=== PATIENT | female | born 1965 | race African-American/Black ===

== ENCOUNTER 2017-08-11 16:20 | Emergency (ER) | payer MEDICAID ==
--- NOTE | 2017-08-11 17:01 | Emergency Department Record ---
History of Present Illness - General Chief Complaint: Abdominal Pain Stated Complaint: ABDOMINAL PAIN Time Seen by Provider: 08/11/17 16:46 Source: Patient Mode of Arrival: Ambulatory Limitations: No limitations - History of Present Illness Initial Comments: 51 yo female with a history of multiple abdominal surgeries presents with 3 days of abdominal pain. No vomiting but she does have some nausea. She is having some loose stools as well. No blood in the stools. No fever. She reports history of appendectomy, numerous [employer], diverticulitis. She has hernies as well. Her current pain does not localize to one area. She points to her entire abdomen as the location. Last bowel movement was about 45 minutes prior to calling the ambulance. She was treated in the last month for renal stones. She reports this pain is different. PCP is Luda Lemus at [facility] Complaint: Abdominal pain Onset/Timin -: Days(s) (3) Location: Diffuse Radiation: Back Severity: Moderate Severity scale (1-10): 10 Quality: Stabbing Consistency: Intermittent Improves With: Rest, Other Worsens With: Movement Associated Symptoms: Anorexia - Related Data Allergies Allergy/AdvReac Type Severity Reaction Status Date / Time latex Allergy Mild itching Verified 08/11/17 16:36 Travel Screening - Travel/Exposure Within Last 30 Days Have you traveled within the last 30 days?: No - Travel/Exposure Within Last Year Have you traveled outside the [place] in the last year?: No - Additonal Travel Details Have you been exposed to anyone with a communicable illness?: No - Travel Symptoms Symptom Screening: None Review of Systems Constitutional: Denies: Chills, Fever, Malaise, Weakness Eyes: Denies: Eye discharge, Eye pain, Photophobia, Vision change ENT: Denies: Congestion, Throat pain Respiratory: Denies: Cough, Dyspnea Cardiovascular: Denies: Chest pain, Palpitations, Syncope Endocrine: Denies: Fatigue Gastrointestinal: Reports: Abdominal pain, Diarrhea, Nausea. Denies: Constipation, Hematemesis, Hematochezia, Melena Genitourinary: Denies: Dysuria, Urgency Musculoskeletal: Denies: Arthralgia, Back pain, Joint swelling, Myalgia Skin: Denies: Bruising, Change in color, Rash Neurological: Denies: Headache, Numbness, Weakness Psychiatric: Denies: Anxiety Hematological/Lymphatic: Denies: Blood Clots, Easy bleeding, Easy bruising Past Medical History - SOCIAL HISTORY Smoking Status: Former smoker Alcohol Use: Rare Drug Use: None - RESPIRATORY Hx Respiratory Disorders: No - CARDIOVASCULAR Hx Cardio Disorders: Yes Hx Hypertension: Yes - NEURO Hx Neuro Disorders: No - GI Hx GI Disorders: Yes Hx Diverticulitis: Yes - Hx Genitourinary Disorders: Yes Hx Kidney Stones: Yes - ENDOCRINE Hx Endocrine Disorders: Yes Hx Diabetes: Yes - MUSCULOSKELETAL Hx Musculoskeletal Disorders: Yes - PSYCH Hx Psych Problems: Yes Hx Anxiety: Yes Hx Depression: Yes Comment:: PTSD - HEMATOLOGY/ONCOLOGY Hx Hematology/Oncology Disorders: No Family Medical History Any Significant Family History?: No Physical Exam - General General Appearance: Alert, Oriented x3, Cooperative, No acute distress Limitations: No limitations - Head Head exam: Normal inspection - Eye Eye exam: Normal appearance. negative: Conjunctival injection, Scleral icterus - ENT ENT exam: Normal exam, Mucous membranes moist Ear exam: Normal external inspection Nasal Exam: Normal inspection Mouth exam: Normal external inspection - Neck Neck exam: Normal inspection, Full ROM. negative: Tenderness - Respiratory Respiratory exam: Normal lung sounds bilaterally. negative: Respiratory distress, Rhonchi, Stridor, Wheezes - Cardiovascular Cardiovascular Exam: Regular rate, Normal rhythm, Normal heart sounds - GI/Abdominal GI/Abdominal exam: Soft, Normal bowel sounds, Guarding (mild), Tenderness, Other (The abdomen is morbidly obese. She is very soft with active bowel sounds but equally tender in all 4 quadrants). negative: Distended, Rebound, Rigid - Rectal Rectal exam: Deferred - exam: Deferred - Extremities Extremities exam: Normal inspection. negative: Pedal edema - Back Back exam: Denies: CVA tenderness (R), CVA tenderness (L) - Neurological Neurological exam: Alert, Oriented X3 - Psychiatric Psychiatric exam: Normal affect, Normal mood - Skin Skin exam: Dry, Intact, Normal color, Warm Course Vital Signs 08/11/17 16:38 Temperature 98.1 F Pulse Rate 94 H Respiratory 20 Rate Blood Pressure 146/91 Pulse Ox 97 - Reevaluation(s) Reevaluation #1: 08/11/17 18:26 I was updated by RN Unable to start line or obtained labs at this time. She was given IM medications and Zofran She is comfortable at this time. 08/11/17 19:00 Multiple RN's and phlebotomy attempted The patient will have CT at this time The case was signed over to Dr Woodward to review the CT and re-evaluate at that time based on the CT results Medical Decision Making - Lab Data Result diagrams: 08/11/17 17:05 08/11/17 17:05 Disposition Disposition: Transfer Clinical Impression: Abdominal pain Qualifiers: Abdominal location: generalized Qualified Code(s): R10.84 - Generalized abdominal pain Disposition: Acute Care Hospital [facility] Reason For Transfer: abdominal pain Accepting Physician: Nino Time Discussed w/Accepting Physician: 21:00 Condition: (2) Stable Forms: Patient Portal Access Time of Disposition: 21:00 Quality - Quality Measures Quality Measures: N/A - Blood Pressure Screening Does Patient Have Any of the Following: Active Dx of HTN Blood Pressure Classification: Pre-Hypertensive BP Reading Systolic Measurement: 148 Diastolic Measurement: 86 Screening for High Blood Pressure: Patient Exclusion, Hx of HTN [G9744] Pre-Hypertensive Follow-up Interventions: Referral to alternative/primary care provider.
[2017-08-11] MEDS ORDERED: ONDANSETRON HCL IV 4 MG/2 ML VIAL IVP ONE (17:06)
[2017-08-11] MEDS ORDERED: 0.9 % SODIUM CHLORIDE 1,000 ML BAG IV ONE (17:06)
[2017-08-11] MEDS ORDERED: MORPHINE SULFATE 10 MG/ML VIAL IVP ONE (17:06)
[2017-08-11] MEDS ORDERED: MORPHINE SULFATE 10 MG/ML VIAL IM ONE (19:03)
--- NOTE | 2017-08-11 21:08 | Emergency Department Record ---
History of Present Illness - General Chief Complaint: Abdominal Pain Stated Complaint: ABDOMINAL PAIN Time Seen by Provider: 08/11/17 16:46 Source: Patient Mode of Arrival: Ambulatory Limitations: No limitations - History of Present Illness MD Complaint: Abdominal pain Onset/Timin -: Days(s) (3) Location: Diffuse Radiation: Back Severity: Moderate Severity scale (1-10): 10 Quality: Stabbing Consistency: Intermittent Improves With: Rest, Other Worsens With: Movement Associated Symptoms: Anorexia - Related Data Patient : No Allergies Allergy/AdvReac Type Severity Reaction Status Date / Time latex Allergy Mild itching Verified 08/11/17 16:36 Travel Screening - Travel/Exposure Within Last 30 Days Have you traveled within the last 30 days?: No - Travel/Exposure Within Last Year Have you traveled outside the [place] in the last year?: No - Additonal Travel Details Have you been exposed to anyone with a communicable illness?: No - Travel Symptoms Symptom Screening: None Review of Systems Constitutional: Denies: Chills, Fever, Malaise, Weakness Eyes: Denies: Eye discharge, Eye pain, Photophobia, Vision change ENT: Denies: Congestion, Throat pain Respiratory: Denies: Cough, Dyspnea Cardiovascular: Denies: Chest pain, Palpitations, Syncope Endocrine: Denies: Fatigue Gastrointestinal: Reports: Abdominal pain, Diarrhea, Nausea. Denies: Constipation, Hematemesis, Hematochezia, Melena Genitourinary: Denies: Dysuria, Urgency Musculoskeletal: Denies: Arthralgia, Back pain, Joint swelling, Myalgia Skin: Denies: Bruising, Change in color, Rash Neurological: Denies: Headache, Numbness, Weakness Psychiatric: Denies: Anxiety Hematological/Lymphatic: Denies: Blood Clots, Easy bleeding, Easy bruising Past Medical History - SOCIAL HISTORY Smoking Status: Former smoker Alcohol Use: Rare Drug Use: None - RESPIRATORY Hx Respiratory Disorders: No - CARDIOVASCULAR Hx Cardio Disorders: Yes Hx Hypertension: Yes - NEURO Hx Neuro Disorders: No - GI Hx GI Disorders: Yes Hx Diverticulitis: Yes - Hx Genitourinary Disorders: Yes Hx Kidney Stones: Yes - ENDOCRINE Hx Endocrine Disorders: Yes Hx Diabetes: Yes - MUSCULOSKELETAL Hx Musculoskeletal Disorders: Yes - PSYCH Hx Psych Problems: Yes Hx Anxiety: Yes Hx Depression: Yes Comment:: PTSD - HEMATOLOGY/ONCOLOGY Hx Hematology/Oncology Disorders: No Family Medical History Any Significant Family History?: No Physical Exam - General Limitations: No limitations Course Vital Signs 08/11/17 08/11/17 08/11/17 16:38 19:57 20:55 Temperature 98.1 F Pulse Rate 94 H Pulse Rate [ 96 H 100 H Pulse Ox Probe] Respiratory 20 20 28 H Rate Blood Pressure 146/91 Blood Pressure 143/77 147/83 [Left Arm] Pulse Ox 97 97 92 L - Reevaluation(s) Reevaluation #1: 08/11/17 21:05 CT Abdomen and Pelvis: Non-obstructing calculi left kidney Abdominal wall hernia with non-obstructing small bowel present Distal small bowel wall thickening. Patient was updated on all results, however nursing staff has been unable to place an IV /obtain laboratory studies even under US imaging. Per patient choice, will initiate transfer to [facility] ED for further evaluation. Medical Decision Making - Lab Data Result diagrams: 08/11/17 17:05 08/11/17 17:05 Disposition Disposition: Transfer Clinical Impression: Abdominal pain Qualifiers: Abdominal location: generalized Qualified Code(s): R10.84 - Generalized abdominal pain Disposition: Acute Care Hospital Transfer Transfer To: [facility] Reason For Transfer: Surgical evaluation, PICC team evaluation Accepting Physician: Nino Time Discussed w/Accepting Physician: 21:08 Condition: (2) Stable Forms: Patient Portal Access Time of Disposition: 21:08 Quality - Quality Measures Quality Measures: N/A - Blood Pressure Screening Does Patient Have Any of the Following: Active Dx of HTN Blood Pressure Classification: Hypertensive Reading Systolic Measurement: 146 Diastolic Measurement: 91 Screening for High Blood Pressure: Patient Exclusion, Hx of HTN [G9744]
--- NOTE | 2017-08-13 20:25 | CT SCAN REPORT ---
EXAM: CT SCAN ABDOMEN/PELVIS WO CONTRAST HISTORY: ABDOMINAL PAIN FOR TWO DAYS. TECHNIQUE: Axial CT scan of the abdomen and pelvis performed with oral contrast but without IV contrast at the referring physician's request. COMPARISON: None. FINDINGS: Surgical clips in the gallbladder fossa consistent with prior cholecystectomy. Single tiny nonobstructing calculus lower pole left kidney. No hydronephrosis or hydroureter on either side. Ureters are difficult to follow in their nondistended state throughout the abdomen and pelvis and this study was not protocoled specifically for urinary tract calculus disease. There does appear to be an extremely tiny faintly calcific-like density associated with the distal left ureter on image #154 of 197. With no ureteral dilatation, this seems less likely to be a tiny distal left ureteral calculus although this is difficult to exclude. Elsewhere, the ureters appear unremarkable. No bladder calculus evident. Post-op change in the sigmoid colon. Evaluation of the viscera very limited without IV contrast. Given this limitation, no definite hepatic, splenic, adrenal, pancreatic, or renal mass identified. There is diverticulosis in the sigmoid colon and also descending colon but no diverticulitis evident. Oral contrast given has passed throughout the small bowel into the colon with no small bowel obstruction evident. Appendix visualized and appears negative. There is a small periumbilical anterior abdominal wall hernia, which contains a knuckle of nonobstructed-appearing small bowel. Mild diverticulosis in the transverse colon as well, again with no diverticulitis evident. No free intraperitoneal air or free intraperitoneal fluid identified. Prominent facet joint arthropathy in the lumbar spine and degenerative disc disease at the lower two lumbar interspaces. There does appear to be some mild small bowel wall thickening in some of the ileal loops in the right lower quadrant. There is no associated obstruction with this and this is of uncertain significance although an ileitis cannot be excluded. However, the actual terminal ileum does not demonstrate this bowel wall thickening. IMPRESSION: 1. POST-OP CHOLECYSTECTOMY. POST-OP SIGMOID COLON ANASTOMOSIS. 2. SCATTERED DIVERTICULOSIS IN THE LEFT SIDE OF THE COLON WITH A FEW IN THE TRANSVERSE COLON WELL BUT NO DIVERTICULITIS EVIDENT. 3. SINGLE TINY NONOBSTRUCTING CALCULUS LEFT KIDNEY. NO HYDRONEPHROSIS OR URETERAL CALCULUS ON EITHER SIDE. TINY HYPERDENSITY IN THE REGION OF THE DISTAL LEFT URETER ON IMAGE #154 OF 197 MAY BE OF NO CLINICAL SIGNIFICANCE ALTHOUGH A TINY CURRENTLY NONOBSTRUCTING LEFT URETERAL CALCULUS CANNOT BE EXCLUDED. 4. SMALL PERIUMBILICAL ANTERIOR ABDOMINAL WALL HERNIA CONTAINING SOME NONOBSTRUCTED SMALL BOWEL. 5. THERE DOES APPEAR TO BE SOME MILD SMALL BOWEL WALL THICKENING WITHIN THE ILEUM IN THE RIGHT LOWER QUADRANT ALTHOUGH NOT ACTUALLY IN THE TERMINAL ILEUM ITSELF. NO ASSOCIATED OBSTRUCTION BUT A FORM OF ILEITIS CANNOT BE EXCLUDED. 6. DEGENERATIVE CHANGE IN THE LUMBAR SPINE. JOB NUMBER: [id number] [facility]
== END 2017-08-11 21:56 | disposition short-term general hospital (02) ==
LOC: ER 16:20
DX: R10.84 Generalized abdominal pain (principal); R11.0 Nausea; R19.7 Diarrhea, unspecified; E11.9 Type 2 diabetes mellitus without complications; I10 Essential (primary) hypertension; Z87.891 Personal history of nicotine dependence; Z87.442 Personal history of urinary calculi
CPT/HCPCS: 99285 ×2; 96374; 96375; 74176; J2405; J2270

== ENCOUNTER 2017-10-17 04:37 | Emergency (ER) | payer MEDICAID ==
[2017-10-17] MEDS ORDERED: HUMULIN R 100 UNIT/ML VIAL SC ONE (04:38)
--- NOTE | 2017-10-17 04:54 | Emergency Department Record ---
History of Present Illness - General Chief Complaint: Abdominal Pain Stated Complaint: ABD PAIN Time Seen by Provider: 10/17/17 04:51 Source: Patient Mode of Arrival: EMS Limitations: No limitations - History of Present Illness Initial Comments: 51 yo female presents to ED for evaluation of diffuse abdominal pain that began approximately 12-14 hours ago. Patient denies fevers, chills, or recent illness. Patient denies nausea/vomiting, and denies change in stools. Patient reports previous appendectomy/skyla as well as small bowel anastamosis. Patient also reports history of diverticulitis. Patient denies urinary symptoms on today's visit. Patient reports similar symptoms in August, reports "they didn't tell me what the cause of my symptoms was", but reports that she was discharged home on medications for "IBS" that helped for a while. MD Complaint: Abdominal pain Onset/Timin -: Hour(s) Location: Diffuse Migration to: No migration Severity: Severe Severity scale (1-10): 9 Quality: Sharp, Stabbing Consistency: Constant, Getting worse Improves With: Other Worsens With: Movement Associated Symptoms: Nausea, Vomiting - Related Data LMP (females 10-50): Unknown Patient : No Allergies Allergy/AdvReac Type Severity Reaction Status Date / Time latex Allergy Mild itching Unverified 09/27/17 11:31 Travel Screening - Travel/Exposure Within Last 30 Days Have you traveled within the last 30 days?: No - Travel Symptoms Symptom Screening: Stomach Pain Review of Systems Constitutional: Denies: Chills, Fever, Malaise, Night sweats Eyes: Denies: Eye discharge, Eye pain ENT: Denies: Congestion, Ear pain, Epistaxis Respiratory: Denies: Cough, Dyspnea Cardiovascular: Denies: Chest pain, Dyspnea on exertion Endocrine: Denies: Fatigue, Heat or cold intolerance Gastrointestinal: Reports: Abdominal pain. Denies: Constipation, Vomiting Genitourinary: Denies: Incontinence, Retention Musculoskeletal: Denies: Arthralgia, Back pain Skin: Denies: Bruising, Change in color Neurological: Denies: Abnormal gait, Confusion, Headache, Seizure Psychiatric: Denies: Anxiety Hematological/Lymphatic: Denies: Anemia, Blood Clots Past Medical History - SOCIAL HISTORY Smoking Status: Former smoker Alcohol Use: None Drug Use: None - RESPIRATORY Hx Respiratory Disorders: No - CARDIOVASCULAR Hx Cardio Disorders: Yes Hx Hypertension: Yes - NEURO Hx Neuro Disorders: No - GI Hx GI Disorders: Yes Hx Diverticulitis: Yes Hx Obstructive Bowel: Yes - Hx Genitourinary Disorders: Yes Hx Kidney Stones: Yes - ENDOCRINE Hx Endocrine Disorders: Yes Hx Diabetes: Yes - MUSCULOSKELETAL Hx Musculoskeletal Disorders: Yes - PSYCH Hx Psych Problems: Yes Hx Anxiety: Yes Hx Depression: Yes Comment:: PTSD - HEMATOLOGY/ONCOLOGY Hx Hematology/Oncology Disorders: No Family Medical History Any Significant Family History?: No Family Hx Comment (NOT TO BE USED IN PLACE OF ITEMS BELOW): denies Physical Exam - General General Appearance: Alert, Oriented x3, Cooperative, Moderate distress Limitations: No limitations - Head Head exam: Atraumatic, Normocephalic, Normal inspection Head exam detail: negative: Abrasion, Contusion, Shelton's sign, General tenderness, Hematoma, Laceration - Eye Eye exam: Normal appearance. negative: Conjunctival injection, Periorbital swelling, Periorbital tenderness, Scleral icterus - ENT Ear exam: negative: Auricular hematoma, Auricular trauma Nasal Exam: negative: Active bleeding, Discharge, Dried blood, Foreign body Mouth exam: negative: Drooling, Laceration, Muffled voice, Tongue elevation - Neck Neck exam: Normal inspection. negative: Meningismus, Tenderness - Respiratory Respiratory exam: Normal lung sounds bilaterally. negative: Rales, Respiratory distress, Rhonchi, Stridor - Cardiovascular Cardiovascular Exam: Regular rate, Normal rhythm, Normal heart sounds - GI/Abdominal GI/Abdominal exam: Soft, Tenderness (Diffuse TTP to the abdominal examination). negative: Rebound, Rigid - Rectal Rectal exam: Deferred - exam: Deferred - Extremities Extremities exam: negative: Calf tenderness, Pedal edema, Tenderness - Back Back exam: Denies: CVA tenderness (R), CVA tenderness (L) - Neurological Neurological exam: Alert, Oriented X3 - Psychiatric Psychiatric exam: Normal affect, Normal mood - Skin Skin exam: Normal color. negative: Abrasion Type of lesion: negative: abrasion Course Vital Signs 10/17/17 04:40 Temperature 97.5 F L Pulse Rate 90 Respiratory 26 H Rate Blood Pressure 144/83 Pulse Ox 93 L - Reevaluation(s) Reevaluation #1: 10/17/17 05:04 CT Abdomen and Pelvis 08/11/17: Post-op cholecystectomy Post-op colon anastamosis Diverticulosis Non-obstructing calculus left kidney Jazmyn-umbilical anterior wall hernia with non-obstructing bowel present Mild SB thickening of the ileum, possible Ilitis? No obstruction is present. Records were reviewed from previous visit to the ED, unable to obtain laboratory studies. CT was performed and the patient was transferred for further evaluation and possible IV team vs. PICC team evaluation to [facility]. Patient reports that they were unable to establish IV access in the ED at [facility], she was discharged on medications for IBS at that time. Reevaluation #2: 10/17/17 05:14 IV was established by nursing staff, laboratory studies were sent lab. CT with IV and oral contrast was ordered for evaluation of recurrent colitis. Further records were reviewed from [facility] (08/12/17), laboratory studies appear to have been obtained and were grossly unremarkable for an acute process. Patient was discharged home on Bentyl and Zofran that the patient reports had been working for her over the past 2 months. Reevaluation #3: 10/17/17 05:46 Laboratory studies were reviewed and are grossly unremarkable for an acute process except for AG 20, Glucose 344. Patient was updated on results thus far, reports that her nausea/vomiting symptoms are improved. Reevaluation #4: 10/17/17 06:48 Patient is starting 2nd bottle of contrast at this time. Case was discussed with oncoming provider, will assume care and disposition pending CT imaging result. Medical Decision Making - Lab Data Result diagrams: 10/17/17 05:05 10/17/17 05:05 Disposition Clinical Impression: Abdominal pain Qualifiers: Abdominal location: generalized Qualified Code(s): R10.84 - Generalized abdominal pain Condition: (2) Stable Instructions: Abdominal Pain (ED) Additional Instructions: Return to ED if your symptoms worsen or if you have any concerns. Follow-up with your family doctor in 3-5 days as directed. Forms: Patient Portal Access Time of Disposition: 06:49 Quality - Quality Measures Quality Measures: N/A - Blood Pressure Screening Does Patient Have Any of the Following: No Blood Pressure Classification: Pre-Hypertensive BP Reading Systolic Measurement: 144 Diastolic Measurement: 83 Screening for High Blood Pressure: < Pre-Hypertensive BP, F/U Documented > [ G8950] Pre-Hypertensive Follow-up Interventions: Referral to alternative/primary care provider.
[2017-10-17] MEDS ORDERED: DICYCLOMINE HCL 10 MG/ML AMPUL IM ONE (05:00)
[2017-10-17] MEDS ORDERED: ONDANSETRON HCL IV 4 MG/2 ML VIAL IM ONE (05:00)
[2017-10-17] MEDS ORDERED: 0.9 % SODIUM CHLORIDE 1000ML 1,000 ML IV SCH (05:00)
[2017-10-17] MEDS ORDERED: ACETAMINOPHEN 1,000 MG/100 ML BTL IVPB ONE (05:16)
[2017-10-17 05:21] LABS: BASO % 0.1 % (0-6); EOS % 1.1 % (0-6); GRAN % 68.1 % (47-80); HEMATOCRIT 44.4 % (35.0-47.0); HEMOGLOBIN 13.8 gm/dl (11.6-16.0); LYMPH % 23.5 % (16-45); MEAN CELL VOLUME 74.2 fl (81-97); MEAN CORPUSCULAR HGB CONC 31.1 g/dl (32-36); MEAN PLATELET VOLUME 10.1 fl (7.4-10.4); MONO % 7.2 % (0-9); PLATELET COUNT 319 K/uL (130-400); RED BLOOD COUNT 5.98 M/uL (3.80-5.40); RED CELL DISTRIBUTION WIDTH 15.1 % (11.5-14.5); WHITE BLOOD COUNT W/O DIFF 7.4 K/uL (4.2-12.2)
[2017-10-17 05:30] LABS: BLOOD UREA NITROGEN 12 mg/dL (6-20); CREATININE 0.7 mg/dL (0.5-0.9); EST GLOMERULAR FILTRATION RATE > 60 mL/min; TOTAL PROTEIN 7.7 g/dL (6.6-8.7)
[2017-10-17] MEDS ORDERED: PROMETHAZINE HCL 12.5 MG in 0.9 % SODIUM CHLORIDE 100ML 100 ML IVPB ONE (05:31)
[2017-10-17 05:32] LABS: GLUCOSE,RANDOM 344 mg/dL (74-109)
[2017-10-17 05:35] LABS: ALB/GLOB RATIO 1.7 (1.1-1.8); ALBUMIN 4.8 g/dL (4.0-5.0); ALKALINE PHOSPHATASE 87 U/L (35-104); ALT/SGPT 35 U/L (<33); AST/SGOT 22 U/L (10.0-35.0); LIPASE 44 U/L (13-60)
[2017-10-17 07:11] LABS: ALB/GLOB RATIO 1.7 (1.1-1.8); ALBUMIN 4.9 g/dL (4.0-5.0); ALKALINE PHOSPHATASE 89 U/L (35-104); ALT/SGPT 35 U/L (<33); AST/SGOT 23 U/L (10.0-35.0); BLOOD UREA NITROGEN 12 mg/dL (6-20); CREATININE 0.7 mg/dL (0.5-0.9); EST GLOMERULAR FILTRATION RATE > 60 mL/min; GLUCOSE,RANDOM 337 mg/dL (74-109); TOTAL PROTEIN 7.8 g/dL (6.6-8.7)
[2017-10-17] MEDS ORDERED: ONDANSETRON HCL IV 4 MG/2 ML VIAL IVP ONE (07:25)
[2017-10-17] MEDS ORDERED: 0.9 % SODIUM CHLORIDE 1,000 ML BAG IV ONE ×2 (07:46→09:07)
[2017-10-17] MEDS ORDERED: KETOROLAC 30 MG/ML VIAL IVP ONE (08:00)
[2017-10-17 08:42] LABS: URINE APPEARANCE CLEAR; URINE BILIRUBIN NEGATIVE (NEGATIVE); URINE BLOOD NEGATIVE (NEGATIVE); URINE COLOR YELLOW; URINE KETONE TRACE (NEGATIVE); URINE LEUKOCYTE ESTERASE NEGATIVE (NEGATIVE); URINE NITRITE NEGATIVE (NEGATIVE); URINE PROTEIN NEGATIVE (NEGATIVE); URINE UROBILINOGEN 0.2 E.U./dL (0.20 - 1.00)
[2017-10-17 08:47] LABS: URINE GLUCOSE (UA) >=1000 mg/dL (NEGATIVE)
[2017-10-17] MEDS ORDERED: HUMULIN R 100 UNIT/ML VIAL IV ONE (08:51)
--- NOTE | 2017-10-17 09:09 | Emergency Department Record ---
History of Present Illness - General Chief Complaint: Abdominal Pain Stated Complaint: ABD PAIN Time Seen by Provider: 10/17/17 04:51 Source: Patient Mode of Arrival: EMS Limitations: No limitations - History of Present Illness MD Complaint: Abdominal pain Onset/Timin -: Hour(s) Location: Diffuse Migration to: No migration Severity: Severe Severity scale (1-10): 9 Quality: Sharp, Stabbing Consistency: Constant, Getting worse Improves With: Other Worsens With: Movement Associated Symptoms: Nausea, Vomiting - Related Data LMP (females 10-50): Unknown Patient : No Allergies Allergy/AdvReac Type Severity Reaction Status Date / Time latex Allergy Mild itching Verified 10/17/17 07:21 Travel Screening - Travel/Exposure Within Last 30 Days Have you traveled within the last 30 days?: No - Travel Symptoms Symptom Screening: Stomach Pain Review of Systems Constitutional: Denies: Chills, Fever, Malaise, Night sweats Eyes: Denies: Eye discharge, Eye pain ENT: Denies: Congestion, Ear pain, Epistaxis Respiratory: Denies: Cough, Dyspnea Cardiovascular: Denies: Chest pain, Dyspnea on exertion Endocrine: Denies: Fatigue, Heat or cold intolerance Gastrointestinal: Reports: Abdominal pain. Denies: Constipation, Vomiting Genitourinary: Denies: Incontinence, Retention Musculoskeletal: Denies: Arthralgia, Back pain Skin: Denies: Bruising, Change in color Neurological: Denies: Abnormal gait, Confusion, Headache, Seizure Psychiatric: Denies: Anxiety Hematological/Lymphatic: Denies: Anemia, Blood Clots Past Medical History - SOCIAL HISTORY Smoking Status: Former smoker Alcohol Use: None Drug Use: None - RESPIRATORY Hx Respiratory Disorders: No - CARDIOVASCULAR Hx Cardio Disorders: Yes Hx Hypertension: Yes - NEURO Hx Neuro Disorders: No - GI Hx GI Disorders: Yes Hx Diverticulitis: Yes Hx Obstructive Bowel: Yes - Hx Genitourinary Disorders: Yes Hx Kidney Stones: Yes - ENDOCRINE Hx Endocrine Disorders: Yes Hx Diabetes: Yes - MUSCULOSKELETAL Hx Musculoskeletal Disorders: Yes - PSYCH Hx Psych Problems: Yes Hx Anxiety: Yes Hx Depression: Yes Comment:: PTSD - HEMATOLOGY/ONCOLOGY Hx Hematology/Oncology Disorders: No Family Medical History Any Significant Family History?: No Family Hx Comment (NOT TO BE USED IN PLACE OF ITEMS BELOW): denies Physical Exam - General Limitations: No limitations Course Vital Signs 10/17/17 10/17/1718 04:40 06:22 07:18 Temperature 97.5 F L Pulse Rate 90 Pulse Rate [ 90 94 H Pulse Ox Probe] Respiratory 26 H 22 24 Rate Blood Pressure 144/83 Blood Pressure 149/93 166/91 [Left Arm] Pulse Ox 93 L 93 L 95 10/17/17 08:47 Temperature 97.5 F L Pulse Rate Pulse Rate [ 91 H Pulse Ox Probe] Respiratory 22 Rate Blood Pressure Blood Pressure 167/103 [Left Arm] Pulse Ox 93 L - Reevaluation(s) Reevaluation #1: The patient is a 51 y/o BF with a hx of chronic AP. She states she goes to the ER about once a month for similar pain. She has had multiple abdominal surgeries and does have a hx of SBO. Presently she is feeling better with normal vital signs and a normal WBC. We are waiting on her CT report. 10/17/17 09:08 Reevaluation #2: It does appear the patient has a SBO on her CT. Due to that fact I do feel she will need a surgical consultation. The patient would like to go to [facility] for further evaluation. 10/17/17 09:28 Reevaluation #3: I did speak with Dr. Anthony at [facility] who does accept the patient for transfer to [facility]. We also will touch base with Dr. Hunter when he calls back. 10/17/17 09:40 Reevaluation #4: The patient is doing better at this time. Her pain and nausea have improved. I did consult with Dr. Hunter regarding the patient being transferred and he will consult. 10/17/17 10:14 Medical Decision Making - Data Complexity MDM Data: Labs Ordered and/or Reviewed, X-Ray Ordered and/or Reviewed - Lab Data Result diagrams: 10/17/17 05:05 10/17/17 06:53 Lab Results 10/17/17 10/17/17 10/17/17 Range/Units 05:05 05:05 06:53 WBC 7.4 (4.2-12.2) K/uL RBC 5.98 H (3.80-5.40) M/uL Hgb 13.8 (11.6-16.0) gm/dl Hct 44.4 (35.0-47.0) % MCV 74.2 L (81-97) fl MCH 23.0 L (27-33) pg MCHC 31.1 L (32-36) g/dl RDW 15.1 H (11.5-14.5) % Plt Count 319 (130-400) K/uL MPV 10.1 (7.4-10.4) fl Gran % 68.1 (47-80) % Lymphocytes % 23.5 (16-45) % Monocytes % 7.2 (0-9) % Eosinophils % 1.1 (0-6) % Basophils % 0.1 (0-6) % Sodium 136 138 (136-145) mmol/L Potassium 4.1 4.2 (3.4-4.5) mmol/L Chloride 94 L 95 L (98-107) mmol/L Carbon Dioxide 22.0 22.0 (22-29) mmol/L Anion Gap 20.0 H 21.0 H (7-16) BUN 12 12 (6-20) mg/dL Creatinine 0.7 0.7 (0.5-0.9) mg/dL Estimated GFR > 60 > 60 mL/min Random Glucose 344 H 337 H (74-109) mg/dL Hemoglobin A1c (4.0-6.00) % Calcium 10.0 9.9 (8.6-10.0) mg/dL Total Bilirubin 0.30 0.30 (0.2-1.0) mg/dL AST 22 23 (10.0-35.0) U/L ALT 35 H 35 H (<33) U/L Alkaline Phosphatase 87 89 (35-104) U/L Total Protein 7.7 7.8 (6.6-8.7) g/dL Albumin 4.8 4.9 (4.0-5.0) g/dL Globulin 2.9 2.9 (1.4-4.8) gm/dL Albumin/Globulin Ratio 1.7 1.7 (1.1-1.8) Lipase 44 (13-60) U/L Urine Color Urine Appearance Urine pH (5.0-8.0) Ur Specific [place] (1.002-1.030) Urine Protein (NEGATIVE) Urine Glucose (UA) (NEGATIVE) Urine Ketones (NEGATIVE) Urine Blood (NEGATIVE) Urine Nitrite (NEGATIVE) Urine Bilirubin (NEGATIVE) Urine Urobilinogen (0.20 - 1.00) E.U./dL Ur Leukocyte Esterase (NEGATIVE) 10/17/17 10/17/17 Range/Units 06:53 08:30 WBC (4.2-12.2) K/uL RBC (3.80-5.40) M/uL Hgb (11.6-16.0) gm/dl Hct (35.0-47.0) % MCV (81-97) fl MCH (27-33) pg MCHC (32-36) g/dl RDW (11.5-14.5) % Plt Count (130-400) K/uL MPV (7.4-10.4) fl Gran % (47-80) % Lymphocytes % (16-45) % Monocytes % (0-9) % Eosinophils % (0-6) % Basophils % (0-6) % Sodium (136-145) mmol/L Potassium (3.4-4.5) mmol/L Chloride (98-107) mmol/L Carbon Dioxide (22-29) mmol/L Anion Gap (7-16) BUN (6-20) mg/dL Creatinine (0.5-0.9) mg/dL Estimated GFR mL/min Random Glucose (74-109) mg/dL Hemoglobin A1c 9.30 H (4.0-6.00) % Calcium (8.6-10.0) mg/dL Total Bilirubin (0.2-1.0) mg/dL AST (10.0-35.0) U/L ALT (<33) U/L Alkaline Phosphatase (35-104) U/L Total Protein (6.6-8.7) g/dL Albumin (4.0-5.0) g/dL Globulin (1.4-4.8) gm/dL Albumin/Globulin Ratio (1.1-1.8) Lipase (13-60) U/L Urine Color Yellow Urine Appearance Clear Urine pH 5.5 (5.0-8.0) Ur Specific [place] 1.010 (1.002-1.030) Urine Protein Negative (NEGATIVE) Urine Glucose (UA) >=1000 mg/dl H (NEGATIVE) Urine Ketones Trace H (NEGATIVE) Urine Blood Negative (NEGATIVE) Urine Nitrite Negative (NEGATIVE) Urine Bilirubin Negative (NEGATIVE) Urine Urobilinogen 0.2 (0.20 - 1.00) E.U./dL Ur Leukocyte Esterase Negative (NEGATIVE) - Radiology Data Radiology results: Report reviewed (CT: SBO) Disposition Disposition: Transfer Clinical Impression: SBO (small bowel obstruction) Abdominal pain Qualifiers: Abdominal location: generalized Qualified Code(s): R10.84 - Generalized abdominal pain Disposition: Acute Care Hospital Transfer Transfer To: [facility] Reason For Transfer: SBO Accepting Physician: Gabrielle Time Discussed w/Accepting Physician: 09:41 Condition: (2) Stable Instructions: Abdominal Pain (ED) Additional Instructions: Return to ED if your symptoms worsen or if you have any concerns. Follow-up with your family doctor in 3-5 days as directed. Forms: Patient Portal Access Time of Disposition: 09:41 Quality - Quality Measures Quality Measures: N/A - Blood Pressure Screening View Details: Yes Does Patient Have Any of the Following: No Blood Pressure Classification: Pre-Hypertensive BP Reading Systolic Measurement: 156 Diastolic Measurement: 81 Screening for High Blood Pressure: < Pre-Hypertensive BP, F/U Documented > [ G8950] Pre-Hypertensive Follow-up Interventions: Referral to alternative/primary care provider.
[2017-10-17] MEDS ORDERED: HYDROMORPHONE HCL 2 MG/ML VIAL IVP ONE (09:27)
--- NOTE | 2017-10-20 11:00 | CT SCAN REPORT ---
EXAM: EMERGENCY CT OF THE ABDOMEN AND PELVIS WITH CONTRAST HISTORY: DIFFUSE ABDOMINAL PAIN FOR TWENTY-FOUR HOURS. HISTORY OF PRIOR BOWEL OBSTRUCTION WITH PARTIAL COLON RESECTION. HYSTERECTOMY. BACK SURGERIES. PATIENT VOMITED JUST PRIOR TO SCANNING. TECHNIQUE: Axial CT scan of the abdomen and pelvis was performed following both oral and IV contrast administration. Please see the medical record for contrast specifics. Comparison: CT of the abdomen and pelvis 08/11/17. FINDINGS: Surgical clips in the gallbladder fossa again seen consistent with cholecystectomy. The uterus is not identified consistent with the surgical history of hysterectomy. Apparent suture line in the sigmoid colon as before. No definite hepatic, splenic, adrenal, pancreatic, or renal mass identified. Tiny calculus lower pole left kidney again seen, also present previously. Mild diverticulosis scattered throughout the colon, but no diverticulitis evident. I believe the appendix is identified and appears negative with no appendicitis evident. The distal ileum is of normal caliber, however, there are numerous dilated loops of small bowel or proximally including some fecalization of the small bowel content in the right lower quadrant. Findings are consistent with a component of small bowel obstruction. The exact point of obstruction is difficult to establish. There is again seen to be a small periumbilical anterior abdominal wall hernia containing a knuckle of the small bowel, but this does not appear to represent the actual site of obstruction. There is some small bowel low in the pelvis just anterior to the bladder that has a slightly thick walled appearance, but this may simply be due to incomplete distention with this being some of the nondilated more distal small bowel loops. There is some minor bibasilar streaky atelectasis or infiltrate. No free intraperitoneal air is evident. There is a small amount of apparent free fluid in the right lower quadrant far laterally. In addition to the small periumbilical anterior abdominal wall hernia already mentioned, there is a second anterior abdominal wall hernia more superiorly in the upper abdomen in the approximate midline containing adipose tissue, but no bowel. This hernia measures about 2.8 cm in diameter within the subcutaneous tissues. Degenerative change in the facets of the lumbar spine and degenerative disk disease in the lower two lumbar interspaces. Some prominent spurring in the thoracic spine as well. Mild thoracolumbar curve convexed to the right. IMPRESSION: 1. POSTOP CHOLECYSTECTOMY, HYSTERECTOMY, AND SIGMOID COLON ANASTOMOSIS. 2. TINY NONOBSTRUCTING CALCULUS LOWER POLE LEFT KIDNEY. 3. SCATTERED DIVERTICULOSIS IN THE COLON, BUT NO DIVERTICULITIS EVIDENT. 4. BOWEL PATTERN CONSISTENT WITH A SMALL BOWEL OBSTRUCTION, EXACT SITE AND ETIOLOGY OF WHICH IS SOMEWHAT DIFFICULT TO ESTABLISH. GIVEN THE HISTORY OF MULTIPLE PRIOR SURGERIES THIS MAY BE ON THE BASIS OF ADHESIONS. 5. SMALL AMOUNT OF FREE FLUID IN THE RIGHT LOWER QUADRANT LATERALLY. NO FREE INTRAPERITONEAL AIR EVIDENT. NO APPENDICITIS EVIDENT. 6. SMALL PERIUMBILICAL ANTERIOR ABDOMINAL WALL HERNIA CONTAINING A KNUCKLE OF SMALL BOWEL, BUT THIS DOES NOT APPEAR TO BE THE SITE OF OBSTRUCTION. THERE IS ALSO A SECOND SMALL ANTERIOR ABDOMINAL WALL HERNIA MORE SUPERIORLY IN THE MID ANTERIOR ABDOMINAL WALL CONTAINING ADIPOSE TISSUE, BUT NO BOWEL. JOB NUMBER: [id number] [facility]
== END 2017-10-17 10:49 | disposition short-term general hospital (02) ==
LOC: ER 04:37
DX: K56.609 Unspecified intestinal obstruction, unspecified as to partial versus complete obstruction (principal); R11.2 Nausea with vomiting, unspecified; E11.9 Type 2 diabetes mellitus without complications; I10 Essential (primary) hypertension; Z79.4 Long term (current) use of insulin; Z87.891 Personal history of nicotine dependence
CPT/HCPCS: 74177; 80053; 81003; 83036; 83690; 85025; 96365; 96372; 96375; 99285; J1885; J2405; J2550; J7030

== ENCOUNTER 2017-10-26 13:58 | Emergency (ER) | payer MEDICAID ==
[2017-10-26] MEDS ORDERED: 0.9 % SODIUM CHLORIDE 1,000 ML BAG IV ONE (14:14)
[2017-10-26] MEDS ORDERED: ONDANSETRON HCL IV 4 MG/2 ML VIAL IV ONE (14:14)
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
[2017-10-26] MEDS ORDERED: MORPHINE SULFATE 10 MG/ML VIAL IM ONE ×2 (14:22→14:48)
[2017-10-26] MEDS ORDERED: ONDANSETRON 4 MG ODT TABLET SL ONE (14:24)
[2017-10-26 15:33] LABS: URINE APPEARANCE CLEAR; URINE BILIRUBIN NEGATIVE (NEGATIVE); URINE BLOOD SMALL (NEGATIVE); URINE COLOR YELLOW; URINE KETONE 15 mg/dL (NEGATIVE); URINE LEUKOCYTE ESTERASE NEGATIVE (NEGATIVE); URINE NITRITE NEGATIVE (NEGATIVE); URINE PROTEIN NEGATIVE (NEGATIVE); URINE UROBILINOGEN 0.2 E.U./dL (0.20 - 1.00)
[2017-10-26 15:43] LABS: URINE RBC 16 - 25 (NONE SEEN)
[2017-10-26 15:44] LABS: URINE BACTERIA NONE SEEN; URINE EPITHELIAL CELLS 0 - 2 (FEW); URINE WBC 0 - 2 (0-2/hpf)
[2017-10-26] MEDS ORDERED: HYDROMORPHONE HCL 2 MG/ML VIAL IM ONE (16:10)
--- NOTE | 2017-10-29 12:22 | CT SCAN REPORT ---
EXAM: CT SCAN ABDOMEN/PELVIS WO CONTRAST HISTORY: LEFT FLANK PAIN RADIATING INTO PELVIS. RENAL CALCULUS HISTORY. TECHNIQUE: Thin-collimation helical CT examination of the abdomen and pelvis is performed without oral or intravenous contrast administration for the express purpose of evaluating the renal collecting systems for obstructing calculi. Lack of oral and IV contrast utilization limits evaluation of the bowel and solid viscera, respectively. COMPARISON: CT abdomen and pelvis with contrast dated 10/17/2017. CT abdomen and pelvis without contrast dated 08/11/2017. FINDINGS: The examination is limited by increased image noise due to large body habitus. Patchy mixed opacities are noted within the posterior lung bases, right greater than left consistent with atelectasis or infiltrate. No pleural or pericardial effusion. The heart is nonenlarged. No new focal abnormality demonstrated within the liver, spleen, pancreas, nor adrenal glands. The gallbladder is surgically absent and no biliary ductal dilatation is seen. No intraabdominal nor retroperitoneal lymphadenopathy. Minimal atherosclerotic calcification of the distal abdominal aorta. The vasculature is otherwise unremarkable. The kidneys remain normal in position. Previously demonstrated small calculus in the lower pole of the left kidney is no longer present in this location. The left kidney is mildly prominent in size with mild left perinephric fat stranding. There is prominence of the left renal collecting system, mild in degree, to the level of the vesicoureteral junction, where a tiny 2 mm calculus projects into the bladder lumen. A tiny calcific density is noted on image #164 , series 3 in close proximity to the left ureter. This is demonstrated on prior examinations and is likely vascular in origin. No new pelvic mass, lymphadenopathy, or free pelvic fluid. Previously demonstrated small bowel obstruction has cleared. Colonic diverticulosis is redemonstrated without convincing evidence of diverticulitis. There is minimal fat stranding adjacent to the anterior margin of the mid descending colon without corresponding diverticulum present. This is not seen on the prior examination and may relate to mild epiploic appendagitis. Diverticulitis less likely. Colonic anastomosis is again noted at the sigmoid colon level appearing unremarkable. A small to moderate size ventral wall hernia is redemonstrated containing a segment of small bowel without evidence of strangulation. No new lytic or blastic bone lesion. IMPRESSION: 1. PREVIOUSLY DEMONSTRATED 2 MM CALCULUS IN THE LOWER POLE OF THE LEFT KIDNEY NOW CAUSES OBSTRUCTION AND IS LOCATED IN THE URETEROVESICAL JUNCTION PROJECTING INTO THE URINARY BLADDER LUMEN. THERE IS ASSOCIATED MILD LEFT PERINEPHRIC FAT STRANDING. 2. POSTSURGICAL CHANGES AGAIN NOTED WITHIN THE SIGMOID COLON. COLONIC DIVERTICULOSIS WITHOUT DEFINITE DIVERTICULITIS. THERE IS A SMALL AREA OF FAT STRANDING ADJACENT TO THE ANTERIOR MARGIN OF THE MID DESCENDING PORTION OF THE COLON, LIKELY EPIPLOIC APPENDAGITIS. 3. STATUS POST CHOLECYSTECTOMY AND HYSTERECTOMY. 4. INTERVAL CLEARING OF PREVIOUSLY DEMONSTRATED SMALL BOWEL OBSTRUCTION. 5. STABLE VENTRAL WALL HERNIA IN THE REGION OF THE UMBILICUS. JOB NUMBER: [id number] [facility]
== END 2017-10-26 18:07 | disposition short-term general hospital (02) ==
LOC: ER 13:58
DX: N13.2 Hydronephrosis with renal and ureteral calculous obstruction (principal); R11.0 Nausea; F43.10 Post-traumatic stress disorder, unspecified; I10 Essential (primary) hypertension; Z87.442 Personal history of urinary calculi; Z87.891 Personal history of nicotine dependence
CPT/HCPCS: 99285; 96372; 99284; 81001; 74176; J1170; J2270